=== PATIENT | female | born 1995 | race African-American/Black ===

== ENCOUNTER 2017-08-21 08:45 | Emergency (ER) | payer OTHER ==
[2017-08-21] MEDS: DICYCLOMINE HCL 10 MG CAPSULE PO (09:13)
[2017-08-21] MEDS: ACETAMINOPHEN 500 MG TABLET PO (09:13)
[2017-08-21] MEDS: ONDANSETRON ODT 4 MG TAB.RAPDIS. PO (09:13)
[2017-08-21 09:25] LABS: INFLUENZA A PATIENT NEGATIVE (NEGATIVE); INFLUENZA B PATIENT NEGATIVE (NEGATIVE); OBC FLU VALID
== END 2017-08-21 10:16 | disposition home or self-care (01) ==
LOC: ER 08:45
DX: R50.9 Fever, unspecified (principal); R19.7 Diarrhea, unspecified; R05 Cough; R51 Headache; M79.1 Myalgia
CPT/HCPCS: 71046; 87804; 87804-59; 99285-25; Q0162

== ENCOUNTER 2017-10-25 02:05 | Emergency (ER) | payer SELFPAY, OTHER ==
[2017-10-25 02:42] LABS: ADD MAN DIFF? NO
[2017-10-25 02:44] LABS: BASO % 0 % (0-3); EOS # 0.2 x10^3/uL (0.0-0.7); EOS % 2 % (0-3); HEMATOCRIT 41.8 % (36.0-47.0); HEMOGLOBIN 14.4 g/dL (12.0-15.5); LYMPH # 5.2 x10^3/uL (1.0-4.8); LYMPH % 42 % (24-48); MEAN CORPUSCULAR HEMOGLOBIN 32 pg (25-35); MEAN CORPUSCULAR HGB CONC 35 g/dL (31-37); MEAN CORPUSCULAR VOLUME 93 fL (79-100); MONO # 0.8 x10^3/uL (0.0-1.1); MONO % 6 % (0-9); NEUT # 6.4 x10^3uL (1.8-7.7); NEUT % 51 % (31-73); PLATELET COUNT 257 x10^3/uL (140-400); RED BLOOD COUNT 4.48 x10^6/uL (3.50-5.40); RED CELL DISTRIBUTION WIDTH 13.4 % (11.5-14.5); WHITE BLOOD COUNT 12.6 x10^3/uL (4.0-11.0)
[2017-10-25 02:45] LABS: URINE HCG POC HCG POSITIVE (Negative)
[2017-10-25] MEDS: IV NORMAL SALINE 1000ML BAG 1,000 ML IV (02:45)
[2017-10-25] MEDS: ONDANSETRON PF 4 MG/2 ML VIAL. IV (02:45)
[2017-10-25 02:48] LABS: BILIRUBIN,URINE NEGATIVE (NEG); CLARITY,URINE CLEAR; COLOR,URINE YELLOW; GLUCOSE,URINE NEGATIVE (NEG); NITRITE,URINE NEGATIVE (NEG); PROTEIN,URINE NEGATIVE (NEG-TRACE)
[2017-10-25 02:51] LABS: ANION GAP 10 (6-14); BLOOD UREA NITROGEN 15 mg/dL (7-20); BUN/CREATININE RATIO 17 (6-20); CALCIUM 8.8 mg/dL (8.5-10.1); CARBON DIOXIDE 25 mmol/L (21-32); CHLORIDE 103 mmol/L (98-107); CREATININE 0.9 mg/dL (0.6-1.0); GFR 95.6; GLUCOSE 100 mg/dL (70-99); POTASSIUM 3.4 mmol/L (3.5-5.1); SODIUM 138 mmol/L (136-145)
[2017-10-25 02:57] LABS: ALBUMIN 4.1 g/dL (3.4-5.0); ALBUMIN/GLOBULIN RATIO 1.1 (1.0-1.7); ALK PHOS 75 U/L (46-116); ALT (SGPT) 15 U/L (14-59); AST (SGOT) 9 U/L (15-37); LIPASE 117 U/L (73-393); TOTAL BILIRUBIN 0.4 mg/dL (0.2-1.0)
[2017-10-25 03:00] LABS: BACTERIA,URINE MODERATE /HPF (0-FEW); RBC,URINE OCC /HPF (0-2); SQUAMOUS EPITHELIAL CELL,UR MOD /LPF
== END 2017-10-25 03:46 | disposition home or self-care (01) ==
LOC: ER 02:05
DX: N39.0 Urinary tract infection, site not specified (principal); Z33.1 Pregnant state, incidental
CPT/HCPCS: 36415; 80053; 81001; 81025; 83690; 85025; 87086; 96361; 96374; 99284; J2405; J7030

== ENCOUNTER 2018-01-29 17:55 | Emergency (ER) | payer OTHER ==
[~2018-01-29] VITALS: Ht 165.1 cm; Wt 68.0 kg
[~2018-01-29 17:55] MED LIST: DICY20TA3 PO; FERR325T58 PO; METR500T8 PO; NAPR-683 PO; NITR100C62 PO; ONDA4TAB12 PO; OXYC-323 PO
[2018-01-29 18:33] VITALS: BP 109/73
--- NOTE | 2018-01-29 18:53 | PHYS DOC ---
Past Medical History Past Medical History: No Pertinent History Past Surgical History: , Tonsillectomy Additional Past Surgical Histo: c sect x 3 Smoking: Cigarettes (The patient is a nonsmoker.) Alcohol Use: Occasionally Drug Use: None Adult General Chief Complaint Chief Complaint: VAGINAL PROBLEM HPI HPI Patient is a 22-year-old -[place] female who presents to the emergency department for evaluation. She states that for the past several days, she has had some vaginal itching and irritation. She states she tried taking a Monistat [id number], but noticed some blood on the applicator. She has not had any other obvious vaginal bleeding or obvious vaginal discharge. She denies any skin lesions. She did report discomfort with intercourse recently, and has been having some dysuria. She has not had any urinary frequency, fevers, chills, nausea, vomiting, abdominal or pelvic pain otherwise. Her LMP was 8/16. She denies that she is . There are no alleviating, or exacerbating factors to her symptoms otherwise. Review of Systems Review of Systems Constitutional: Denies fever or chills [] Eyes: Denies change in visual acuity, redness, or eye pain [] HENT: Denies nasal congestion or sore throat [] Respiratory: Denies cough or shortness of breath [] GI: Denies abdominal pain, nausea, vomiting, bloody stools or diarrhea [] : As per history of present illness[] Musculoskeletal: Denies back pain or joint pain [] Integument: Denies rash or skin lesions [] Neurologic: Denies headache, focal weakness or sensory changes [] Allergies Allergies Allergies Coded Allergies Type Severity Reaction Last Updated Verified No Known Drug Allergies 06/20/14 No Physical Exam Physical Exam PHYSICAL EXAM: CONSTITUTIONAL: Well developed, well nourished HEAD: normocephalic, atraumatic EENT: PERRL, EOMI. Conjunctivae normal color, sclerae non-icteric; moist mucous membranes. NECK: Supple, non-tender; no meningismus. LUNGS: Lungs CTA, breathing even and unlabored. Normal air movement. HEART: Regular rate and rhythm, no murmur CHEST: No deformity; non-tender ABDOMEN: The abdomen is soft, and non-tender, no masses or bruits. EXTREM: Normal ROM; no deformity, no calf tenderness. Normal pulses palpable in all extremities. There is no pedal edema. SKIN: No rash; no diaphoresis NEURO: Alert; normal speech and cognition; CN's grossly intact; strength grossly intact without focal deficit. BACK: No CVA TTP. PELVIC EXAM:Normal external genitalia without any obvious skin lesions. There is a small amount of mildly thick brownish white vaginal discharge, without any obvious cervical discharge. The cervix appears normal without any cervical motion tenderness. There is no adnexal or uterine tenderness on bimanual exam. Exam was performed in the presence of the patient's nurse, Payton. Current Patient Data Vital Signs Vital Signs Date Time Temp Pulse Resp B/P (MAP) Pulse Ox O2 Delivery O2 Flow Rate FiO2 01/29/18 18:33 98.0 75 14 109/73 (85) 99 Room Air 98.0 Lab Values Laboratory Tests Test 01/29/18 18:36 Urine Collection Type Unknown Urine Color Sisi Urine Clarity Cloudy Urine pH 6.0 Urine Specific [place] 1.025 Urine Protein Negative mg/dL (NEG-TRACE) Urine Glucose (UA) Negative mg/dL (NEG) Urine Ketones (Stick) Trace mg/dL (NEG) Urine Blood Negative (NEG) Urine Nitrite Negative (NEG) Urine Bilirubin Negative (NEG) Urine Urobilinogen Dipstick 1.0 mg/dL (0.2 mg/dL) Urine Leukocyte Esterase Small (NEG) Urine RBC 0 /HPF (0-2) Urine WBC 1-4 /HPF (0-4) Urine Squamous Epithelial Cells Mod /LPF Urine Bacteria Few /HPF (0-FEW) Urine Mucus Mod /LPF Urine Test Negative (NEG) Microbiology 01/29/18 Wet Prep - Final, Complete EKG EKG [] Radiology/Procedures Radiology/Procedures [] Course & Med Decision Making Course & Med Decision Making Pertinent Lab studies reviewed. (See chart for details) [ Procedure Result WET PREP Final YEAST NONE SEEN TRICHOMONAS NONE SEEN CLUE CELLS NONE SEEN 7:20 PM: Discharge note the patient will be given a therapeutic trial of Flagyl. ] Shane Disclaimer Dragon Disclaimer This electronic medical record was generated, in whole or in part, using a voice recognition dictation system. Departure Departure Impression: Primary Impression: Vaginitis Disposition: 01 HOME, SELF-CARE Condition: STABLE Referrals: JOSSELINE DYE Jr, MD Patient Instructions: Vaginitis, [id number]-Wknu Scripts Metronidazole (FLAGYL) 500 Mg Tablet 1 TAB PO BID, #14 TAB Prov: TE VALENTINE MD 01/29/18 TE VALENTINE MD Jan 29, 2018 18:53
[2018-01-29 19:00] LABS: BILIRUBIN,URINE NEGATIVE (NEG); CLARITY,URINE CLOUDY; COLOR,URINE AMBER; NITRITE,URINE NEGATIVE (NEG); PROTEIN,URINE NEGATIVE (NEG-TRACE)
[2018-01-29 19:05] LABS: BACTERIA,URINE FEW /HPF (0-FEW); RBC,URINE 0 /HPF (0-2); SQUAMOUS EPITHELIAL CELL,UR MOD /LPF
[2018-01-29 19:09] LABS: U PREG PATIENT NEGATIVE (NEG)
[2018-01-29] MEDS ORDERED: METR500T PO (19:22)
[2018-02-03 15:27] LABS: GC PROBE Negative (Negative)
== END 2018-01-29 19:32 | disposition home or self-care (01) ==
LOC: ER 17:55
DX: N76.0 Acute vaginitis (principal)
CPT/HCPCS: 81001; 81025; 87086; 87491; 87591; 99284; Q0111

== ENCOUNTER 2018-03-06 16:12 | Emergency (ER) | payer OTHER ==
[~2018-03-06 16:12] MED LIST changes: +METR500T PO
== END 2018-03-06 16:35 | disposition left against medical advice (07) ==
LOC: ER 16:12
DX: L50.8 Other urticaria (principal); Z53.21 Procedure and treatment not carried out due to patient leaving prior to being seen by health care provider

== ENCOUNTER 2019-02-28 21:11 | Emergency (ER) | payer SELFPAY ==
[~2019-02-28] VITALS: Ht 165.1 cm; Wt 75.3 kg
[~2019-02-28 21:11] MED LIST changes: +METR-34 PO; -METR500T8 PO; -OXYC-323 PO; +OXYC1TAB15 PO
[2019-02-28 21:30] VITALS: BP 124/68
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
[2019-02-28 22:51] LABS: BASO % 0 % (0-3); EOS % 0 % (0-3); HEMATOCRIT 38.5 % (36.0-47.0); HEMOGLOBIN 13.5 g/dL (12.0-15.5); LYMPH # 1.9 x10^3/uL (1.0-4.8); LYMPH % 14 % (24-48); MEAN CORPUSCULAR HEMOGLOBIN 33 pg (25-35); MEAN CORPUSCULAR HGB CONC 35 g/dL (31-37); MEAN CORPUSCULAR VOLUME 93 fL (79-100); MONO # 0.7 x10^3/uL (0.0-1.1); MONO % 5 % (0-9); NEUT # 10.7 x10^3/uL (1.8-7.7); NEUT % 80 % (31-73); PLATELET COUNT 279 x10^3/uL (140-400); RED BLOOD COUNT 4.16 x10^6/uL (3.50-5.40); RED CELL DISTRIBUTION WIDTH 12.7 % (11.5-14.5); WHITE BLOOD COUNT 13.4 x10^3/uL (4.0-11.0)
[2019-02-28 22:55] LABS: BILIRUBIN,URINE NEGATIVE (NEG); CLARITY,URINE CLEAR; COLOR,URINE YELLOW; NITRITE,URINE NEGATIVE (NEG); PH,URINE 6.5; PROTEIN,URINE NEGATIVE (NEG-TRACE); UROBILINOGEN,URINE 0.2 mg/dL (0.2 mg/dL)
[2019-02-28 22:58] LABS: CALCIUM 9.5 mg/dL (8.5-10.1); CREATININE 0.9 mg/dL (0.6-1.0); GFR 94.7; POTASSIUM 3.2 mmol/L (3.5-5.1)
[2019-02-28 22:59] LABS: BACTERIA,URINE FEW /HPF (0-FEW); RBC,URINE 0 /HPF (0-2); SQUAMOUS EPITHELIAL CELL,UR MOD /LPF
[2019-02-28 23:04] LABS: TOTAL BILIRUBIN 0.6 mg/dL (0.2-1.0); TOTAL PROTEIN 7.9 g/dL (6.4-8.2)
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
== END 2019-03-01 00:22 | disposition home or self-care (01) ==
LOC: ER 21:11
DX: O26.891 Other specified pregnancy related conditions, first trimester (principal); R10.30 Lower abdominal pain, unspecified; Z3A.01 Less than 8 weeks gestation of pregnancy; Y08.89XA Assault by other specified means, initial encounter; Y93.89 Activity, other specified; Y92.89 Other specified places as the place of occurrence of the external cause; Y99.8 Other external cause status
CPT/HCPCS: 36415; 76801; 80053; 81001; 84702; 85025; 86850; 86900; 86901; 99285-25

== ENCOUNTER 2019-05-30 20:47 | Emergency (ER) | payer BC ==
[~2019-05-30] VITALS: Ht 165.1 cm; Wt 82.6 kg
[2019-05-30] MEDS ORDERED: PENI500T PO (22:03)
[2019-05-30] MEDS ORDERED: CHLO15MO2 SWSP (22:03)
[2019-05-30] MEDS ORDERED: NAPR-514 PO (22:03)
--- NOTE | 2019-05-30 22:03 | PHYS DOC ---
Past Medical History Past Medical History: No Pertinent History (GARY SANDOVAL APRN) Past Surgical History: Additional Past Surgical Histo: c sect x 3 (GARY SANDOVAL APRN) Alcohol Use: Occasionally Drug Use: None (GARY SANDOVAL APRN) Attending Signature I have participated in the care of this patient and I have reviewed and agree with all pertinent clinical information above including history, exam, and recommendations. (TROY BARRETT MD) Adult General Chief Complaint Chief Complaint: DENTAL PROBLEM [facility] HPI Patient is a 23 year old AA female who presents to the emergency department with complaints of right upper quadrant dental pain for the last 10 days. She denies any nausea, vomiting, diarrhea, abdominal pain, sore throat, fever, cough, shortness of breath, or wheezing. Patient states that her right ear hurts, but she denies any drainage or bleeding from her ear. Currently rates her pain 8 out of 10 on pain scale, she denies any alleviating factors. Patient stat es she has taken Tylenol at home with no relief of her symptoms. She has an appointment with her dentist on Friday but is not able to see her dentist before then.All other ROS is neg unless otherwise noted in HPI. (GARY SANDOVAL APRN) Review of Systems Review of Systems See Above (GARY SANDOVAL APRN) Allergies Allergies Allergies Coded Allergies Type Severity Reaction Last Updated Verified No Known Drug Allergies 06/20/14 No (TROY BARRETT MD) Physical Exam Physical Exam See Above Constitutional: Well developed, well nourished, no acute distress, non-toxic a ppearance. [] HENT: Normocephalic, atraumatic, bilateral external ears normal, oropharynx moist, no oral exudates, nose normal; right upper quadrant gingival tenderness, erythema, and edema without any visible or palpable dental abscess, dental decay appreciated in the right upper quadrant [] Eyes: PERRLA, EOMI, conjunctiva normal, no discharge. [] Neck: Normal range of motion, no tenderness, supple, no stridor. [] Cardiovascular:Heart rate regular rhythm, no murmur [] Lungs & Thorax: Bilateral breath sounds clear to auscultation, Respirations even and unlabored, no retractions, no respiratory distress[] Skin: Warm, dry, no erythema, no rash. [] Extremities: No cyanosis, ROM intact Neurologic: Alert and oriented X 3, no focal deficits noted. [] Psychologic: Affect normal, judgement normal, mood normal. [] (GARY SANDOVAL APRN) Current Patient Data Vital Signs Vital Signs Date Time Temp Pulse Resp B/P (MAP) Pulse Ox O2 Delivery O2 Flow Rate FiO2 05/30/19 21:02 98.1 104 16 144/87 (106) 98 Room Air 98.1 (TROY BARRETT MD) EKG EKG [] (GARY SANDOVAL APRN) Radiology/Procedures Radiology/Procedures [] (GARY SANDOVAL APRN) Course & Med Decision Making Course & Med Decision Making Pertinent Labs and Imaging studies reviewed. (See chart for details) [] (GARY SANDOVAL APRN) Dragon Disclaimer Dragon Disclaimer This electronic medical record was generated, in whole or in part, using a voice recognition dictation system. (GARY SANDOVAL APRN) Departure Departure Impression: Primary Impression: Dentalgia Additional Impression: Gingivitis, acute Disposition: HOME, SELF-CARE Condition: STABLE Referrals: NO PCP (PCP) Patient Instructions: Dental Pain, [id number], Gingivitis, [id number] Additional Instructions: Fill prescription(s) and use as directed. Follow up with your dentist as planned. Return to the ER if symptoms worsen. Scripts Chlorhexidine Gluconate (PERIDEX) 15 Ml Mouthwash 15 ML SWSP BID for 7 Days, #473 ML 0 Refills [place] teeth before using to prevent staining. Swish for approximately 30 seconds before spitting. Prov: GARY SANDOVAL APRN 05/30/19 Penicillin V Potassium (PENICILLIN V POTASSIUM) 500 Mg Tablet 1 TAB PO QID for 10 Days, #40 TAB 0 Refills Prov: GARY SANDOVAL APRN 05/30/19 Naproxen (NAPROXEN) 500 Mg Tablet 1 TAB PO BID PRN for PAIN for 10 Days, #20 TAB 0 Refills Prov: GARY SANDOVAL APRN 05/30/19 Problem Qualifiers GARY SANDOVAL APRN May 30, 2019 22:03 TROY BARRETT MD May 31, 2019 04:33
== END 2019-05-30 22:18 | disposition home or self-care (01) ==
LOC: ER 20:47
DX: K08.89 Other specified disorders of teeth and supporting structures (principal); K05.00 Acute gingivitis, plaque induced; Z98.890 Other specified postprocedural states
CPT/HCPCS: 99283